=== PATIENT | female | born 1985 | race African-American/Black ===

== ENCOUNTER 2020-10-19 09:47 | Inpatient (IN) ==
[2020-10-19] MEDS: LACTATED RINGERS 1,000 ML IV SCH ×2 (10:23→19:57)
[2020-10-19 10:24] LABS: Basophils % 0.2 % (0.0-0.8); Eosinophils % 0.4 % (0.00-10.9); Hematocrit 29.9 VOL% (35.7-47.0); Hemoglobin 9.1 GM/DL (12.0-16.0); Immature Granulocytes % 0.6 %; Immature Granulocytes Absolute 0.03 #; Lymphocytes # 1.4 10*3/uL (1.4-4.0); Lymphocytes % 28.5 % (21.3-54.2); Mean Corpuscular HGB Conc 30.4 GM/DL (32-36); Mean Corpuscular Volume 80.6 FL (87-102); Monocytes % 9.5 % (1.7-12.7); Neutrophils % 60.8 % (38.7-73.9); Platelet Count 290 T/CUMM (130-400); Red Blood Count 3.71 MC/CUMM (3.8-5.5); Red Cell Distribution Width 13.7 % (9.3-17.3); White Blood Count 5.1 T/CUMM (4-12)
[2020-10-19] MEDS ORDERED: OXYTOCIN/LR 20 UNIT/1,000 ML BAG IV SCH (10:30)
[2020-10-19 10:45] LABS: Albumin 2.6 G/DL (3.4-5.0); Bilirubin,Total 0.4 MG/DL (0.2-1.0); Calcium 9.3 MG/DL (8.5-10.1); Osmolality,Calculated 265.2 MOS/KG (273-304); Potassium 4.1 MMOL/L (3.5-5.1); Total Protein 7.7 G/DL (6.4-8.3)
[2020-10-19] MEDS ORDERED: ACETAMINOPHEN 500 MG TABLET PO PRN (16:56)
[2020-10-19] MEDS: ONDANSETRON 4 MG/2 ML VIAL IV PRN (20:05)
[2020-10-19] MEDS: BUTORPHANOL 2 MG/ML VIAL IV PRN (20:09)
[2020-10-19] MEDS: LABETALOL 100 MG TABLET PO SCH (21:22)
[2020-10-20] MEDS: BUTORPHANOL 2 MG/ML VIAL IV PRN (00:22)
[2020-10-20] MEDS: MEPERIDINE 50 MG/1 ML VIAL IV PRN ×2 (04:37→08:04)
[2020-10-20] MEDS: LABETALOL 100 MG TABLET PO SCH (07:59)
[2020-10-20] MEDS: ONDANSETRON 4 MG/2 ML VIAL IV PRN (08:13)
[2020-10-20] MEDS ORDERED: FAMOTIDINE 20 MG/2 ML VIAL IV ONE (08:21)
[2020-10-20] MEDS ORDERED: NIFEdipine 10 MG CAPSULE PO ONE (08:21)
[2020-10-20] MEDS ORDERED: LACTATED RINGERS 1,000 ML IV ONE (08:21)
[2020-10-20] MEDS ORDERED: LACTATED RINGERS 500 ML IV ONE (08:21)
[2020-10-20] MEDS ORDERED: CITRIC ACID/SODIUM CITRATE 30 ML UDCUP PO ONE (08:21)
[2020-10-20] MEDS ORDERED: OXYTOCIN/LR 20 UNIT/1,000 ML BAG IV ONE ×2 (08:27→10:30)
[2020-10-20] MEDS ORDERED: OXYTOCIN 10 UNIT/ML VIAL ONE (08:27)
[2020-10-20] MEDS ORDERED: CARBOPROST TROMETHAMINE 250 MCG/ML AMP IM ONE (08:29)
[2020-10-20] MEDS ORDERED: miSOPROStoL 200 MCG TABLET ONE (08:29)
[2020-10-20] MEDS ORDERED: TRANEXAMIC ACID 1,000 MG/10 ML VIAL ONE (08:29)
[2020-10-20] MEDS ORDERED: LACTATED RINGERS 1,000 ML IV SCH ×2 (08:30→10:30)
[2020-10-20] MEDS ORDERED: MORPHINE 10 MG/10 ML VIAL ONE (08:54)
[2020-10-20] MEDS ORDERED: ceFAZolin 3,000 MG in SYRINGE 1 EACH IV SCH (09:00)
[2020-10-20] MEDS ORDERED: PHENYLEPHRINE 1 MG/10 ML SYRINGE IV ONE (10:04)
[2020-10-20] MEDS ORDERED: ONDANSETRON 4 MG/2 ML VIAL ONE (10:04)
[2020-10-20] MEDS ORDERED: BUPIVACAINE SPINAL 0.75% 2 ML AMP SPINAL ONE (10:08)
[2020-10-20 10:10] LABS: Bacteria,Urine Occasional /HPF (Few); Bilirubin,Urine Negative (Negative); Blood, Urine Negative (Negative); Glucose,Urine (UA) Negative (Negative); Ketones,Urine Negative (Negative); Mucus,Urine Occasional /LPF (Occasional); Nitrite,Urine Negative (Negative); Protein,Urine Negative; Squamous Epithelial Cell,Urine Occasional /HPF (0-10); Urine Appearance CLEAR (Clear); Urine Color Yellow (Yellow); Urine Specific Gravity 1.012 (1.001-1.035); Urine Urobilinogen < 2.0 EU/DL (0.2-1.0); WBC,Urine <1 /HPF (0-6)
[2020-10-20 10:16] LABS: Cord Arterial Blood HCO3 15.9 MMOL/L
[2020-10-20 10:19] LABS: Cord Venous Blood HCO3 17.3 MMOL/L; Cord Venous Blood PCO2 72.7 MMHG; Cord Venous Blood PO2 11.8
[2020-10-20] MEDS ORDERED: ONDANSETRON 4 MG/2 ML VIAL IV PRN (10:30)
[2020-10-20] MEDS ORDERED: RHO(D) IMMUNE GLOBULIN 300 MCG SYRINGE IM ONE (10:30)
[2020-10-20] MEDS ORDERED: MAGNESIUM HYDROXIDE SUSP 30 ML UDCUP PO PRN (10:30)
[2020-10-20] MEDS ORDERED: SIMETHICONE CHEW 80 MG TABLET PO PRN (10:30)
[2020-10-20] MEDS ORDERED: ceFAZolin 1,000 MG in SYRINGE 1 EACH IV SCH (10:30)
[2020-10-20] MEDS ORDERED: ACETAMINOPHEN 325 MG TABLET PO PRN (10:30)
[2020-10-20] MEDS ORDERED: SODIUM CHLORIDE 0.9% 1,000 ML IV PRN (10:38)
[2020-10-20] MEDS ORDERED: OXYTOCIN/LR 30 UNIT/1,000 ML BAG IV ONE (10:42)
[2020-10-20] MEDS ORDERED: INFLUENZA VIRUS VACCINE 0.5 ML SYRINGE IM ONE (11:34)
[2020-10-20] MEDS ORDERED: HYDROmorphone 2 MG/1 ML VIAL IV PRN (12:28)
[2020-10-20 15:28] LABS: Hematocrit 30.4 VOL% (35.7-47.0); Hemoglobin 9.7 GM/DL (12.0-16.0)
[2020-10-21 04:36] LABS: Basophils % 0.2 % (0.0-0.8); Eosinophils % 0.1 % (0.00-10.9); Hematocrit 29.6 VOL% (35.7-47.0); Hemoglobin 9.2 GM/DL (12.0-16.0); Immature Granulocytes % 0.4 %; Immature Granulocytes Absolute 0.03 #; Lymphocytes # 1.7 10*3/uL (1.4-4.0); Lymphocytes % 20.5 % (21.3-54.2); Mean Corpuscular HGB Conc 31.1 GM/DL (32-36); Mean Corpuscular Volume 80.7 FL (87-102); Mean Platelet Volume 11.8 FL (9.6-12.0); Monocytes % 8.3 % (1.7-12.7); Neutrophils % 70.5 % (38.7-73.9); Platelet Count 268 T/CUMM (130-400); Red Blood Count 3.67 MC/CUMM (3.8-5.5); Red Cell Distribution Width 13.9 % (9.3-17.3); White Blood Count 8.3 T/CUMM (4-12)
[2020-10-21] MEDS ORDERED: METOCLOPRAMIDE 10 MG/2 ML VIAL IV SCH (08:00)
[2020-10-21] MEDS: MULTIVITAMIN (PRENATAL) TABLET PO SCH (08:22)
[2020-10-21] MEDS: DOCUSATE SODIUM 100 MG CAPSULE PO SCH ×3 (08:22→20:00)
[2020-10-21] MEDS: METOCLOPRAMIDE 10 MG TABLET PO SCH ×3 (08:22→23:45)
[2020-10-22] MEDS: IBUPROFEN 800 MG TABLET PO PRN ×2 (04:57→11:31)
[2020-10-22 09:17] VITALS: BP 128/86
[2020-10-22] MEDS ORDERED: amLODIPine 5 MG TABLET PO ONE (10:54)
[2020-10-22] MEDS: MULTIVITAMIN (PRENATAL) TABLET PO SCH (11:31)
[2020-10-22] MEDS: DOCUSATE SODIUM 100 MG CAPSULE PO SCH (11:31)
[2020-10-22] MEDS: METOCLOPRAMIDE 10 MG TABLET PO SCH (11:32)
== END 2020-10-22 12:30 | disposition home or self-care (01) | DRG 788 ==
LOC: N.LDOUT 09:47 → N.LD 09:50 → N.OB 10-20 13:50
PROVIDERS: ADMIT Obstetrics & Gynecology; ATTEND Obstetrics & Gynecology
PROC: LDCSECT (ICD-10-PCS; 2020-10-20 09:00)